=== PATIENT | female | born 1980 | race Caucasian/White ===

== ENCOUNTER → 2023-12-30 11:52 | Outpatient (REF) | payer BC, SELFPAY | LOC: WDC 11:52 | PROVIDERS: ATTENDING PHYSICIAN Registered Nurse; FAMILY PHYSICIAN Family Medicine | DX: Z12.31 Encounter for screening mammogram for malignant neoplasm of breast (principal) | CPT/HCPCS: 77063; 77067 ==

== ENCOUNTER → 2024-03-29 13:59 | Outpatient (REF) | payer BC, SELFPAY | LOC: WDC 13:59 | PROVIDERS: ATTENDING PHYSICIAN Registered Nurse; FAMILY PHYSICIAN Family Medicine | DX: R92.2 Inconclusive mammogram (principal); Z80.3 Family history of malignant neoplasm of breast | CPT/HCPCS: 76641 ==

== ENCOUNTER → 2024-12-30 12:11 | Outpatient (REF) | payer BC, SELFPAY | LOC: WDC 12:11 | PROVIDERS: ATTENDING PHYSICIAN Registered Nurse; FAMILY PHYSICIAN Family Medicine | DX: Z12.31 Encounter for screening mammogram for malignant neoplasm of breast (principal) | CPT/HCPCS: 77063; 77067 ==